=== PATIENT | female | born 1940 | race Caucasian/White ===

== ENCOUNTER 2024-07-11 14:14 | Outpatient (AMB) | payer MEDICARE, SELFPAY ==
[2024-07-11 14:24] VITALS: BP 120/62; PULSE 95; BMI 29.7
--- NOTE | 2024-07-11 14:24 | A.OFFVIS_ITS ---
Vital Signs 07/11/24 14:24 Height 5 ft 4 in Weight 173 lb 4.533 oz BMI 29.7 BP 120/62 Blood Pressure Location Rt brachial Position Sitting Pulse 95 Pulse Source Pulse Oximeter Intake Visit Reasons: [employer]/ Robin/ chest pain/ family hx/fatigue Director Of Strategic Initiatives Required: No Allergies No Known Allergies Allergy (Verified 07/11/24 14:26) Medication List - Last Reconciled 07/11/24 by Martinez Raygoza MD amlodipine 5 mg PO DAILY atorvastatin 40 mg PO DAILY cholecalciferol (vitamin D3) 50 mcg PO DAILY levothyroxine 50 mcg PO DAILY omega 8-iwo-pkd-fish oil 1,000 (120-180) mg (Fish Oil) 1 cap PO DAILY vitamin B complex 1 tab PO DAILY HPI Comments Details: Genevieve is here for consultation regarding chest discomfort/shortness of breath. No previous history of any cardiovascular issues including coronary disease or myocardial infarction or cardiomyopathy. She states that she gets short of breath with physical activities like climbing stairs or shopping. She gets generalized weakness and fatigue. Nonspecific chest tightness at different times which can happen even during turning extra. Nonexertional. She is concerned about cardiac issues as apparently it runs in her family. Her son who was in his 40s had heart attack but he was also a smoker then. Has previously seen [facility] undergone an echocardiogram. On medications for hypertension/dyslipidemia. [facility] Medical History (Updated 07/11/24 @ 15:31 by Martinez Raygoza MD) Hyperlipidemia, unspecified Primary hypertension Hernia Family History (Updated 07/11/24 @ 14:33 by Erinn Forrester CMA) Son Heart attack Social History (Updated 07/11/24 @ 14:34 by Erinn Forrester CMA) Alcohol intake: current Alcohol intake frequency: holidays/special occasions only Patient Tobacco Use Status: Never used Tobacco Review of Systems ENT Reports dizziness Card Denies chest pain, Denies chest pain at rest, Denies chest pain with activity, Denies rapid heart rate, Denies pedal edema, Denies edema, Denies leg edema, Denies lightheadedness, Denies palpitations, Denies dyspnea, Denies dyspnea on exertion and Denies orthopnea Resp Denies cough, Denies dyspnea and Denies dyspnea on exertion GI Denies hematochezia and Denies change in stool character Musc Denies abnormal gait, Reports limited range of motion, Reports muscle cramps, Denies muscle weakness, Denies numbness, Denies radiating pain into limb, Denies stiffness and Denies tingling Neuro Denies abnormal gait, Reports dizziness, Denies numbness and Denies tingling Endo Denies palpitations Physical Exam Vital Signs: Last Vital Signs Pulse 95 07/11/24 14:24 BP 120/62 07/11/24 14:24 BMI result Body Mass Index 29.7 Const General: comfortable and no acute distress Orientation/consciousness: patient oriented x3 HEENT Other: Unremarkable Head: Yes normal to inspection Neck Neck: Yes normal visual inspection Chest Chest palpation & inspection: normal inspection of the chest Resp Auscultation: clear to auscultation bilaterally Cardio Palpation: normal PMI Heart sounds: S1 normal heart sound present, S2 normal heart sound present, no gallops, no murmurs and no rubs GI Palpation (GI): Soft to palpation Back/Spine/Pelvis Other: unremarkable Skin General skin exam: no rashes or lesions noted Neuro General: patient oriented x3 Extrem General: Yes normal to inspection Psych Mental Status: mental status grossly normal Assessment & Plan Assessment & Plan (1) Precordial chest pain: Code(s): R07.2 - Precordial pain Category: Medical (2) SOB (shortness of breath): Code(s): R06.02 - Shortness of breath Category: Medical (3) Primary hypertension: Code(s): I10 - Essential (primary) hypertension Category: Medical (4) Hyperlipidemia, unspecified: Code(s): E78.5 - Hyperlipidemia, unspecified Category: Medical Plan Echocardiogram at [facility] [place]-LVEF 55-60%. Mild asymmetric hypertrophy from sigmoid septum. Normal diastolic function. No significant valvular abnormalities. Symptoms are somewhat atypical but based on family history, risk factors, reasonable to get a pharmacological stress test with Lexiscan. Highly unlikely to exercise on the treadmill. If any concerning findings, we will reassess. No changes with blood pressure medications or statins. Follow-up after the above. Discussion Notes I discussed with the patient the necessity of a pharmacological stress test due to her inability to perform an exercise stress test. I explained that this is an injection-based procedure that assesses the heart's function under stress and is critical for diagnosing any coronary artery disease given her symptoms and family history. I clarified that the echocardiogram cannot detect blockages, hence the need for further testing. We discussed managing her hyperlipidemia and hypertension as ongoing concerns, and the significance of addressing sleep apnea, emphasizing follow-up with previous providers for unresolved issues. The patient and family understood the risks and benefits and including the importance of timely follow-up visits. Patient was informed and verbally consented to the use of an ambient scribe for clinic note documentation during this visit. Orders: Orders NM cardiolite stress test Today R06.02 - Shortness of breath, R07.2 - Precordial pain CA lexiscan stress w leelee Today I20.9 - Angina pectoris, unspecified, R06.02 - Shortness of breath Patient Instructions: - Undergo the scheduled pharmacological stress test as instructed. - Continue taking your current medications for blood pressure and cholesterol. - Follow up with specialists about your sleep apnea management. - Avoid activities that worsen your shortness of breath or chest pain. - Inform your family of any changes in your symptoms. - Contact your healthcare provider if you experience increased chest pain, breathing difficulties, or other new symptoms. Coding Level of Care Code New Pt Level 4 (49269) Diagnoses Precordial chest pain R07.2 SOB (shortness of breath) R06.02 Primary hypertension I10 Hyperlipidemia, unspecified E78.5
== END 2024-07-11 14:58 | disposition home or self-care (01) ==
PROVIDERS: PCP Physician Assistant Medical; Visit Provider Internal Medicine
DX: R07.2 Precordial pain (principal); R06.02 Shortness of breath; I10 Essential (primary) hypertension; E78.5 Hyperlipidemia, unspecified
CPT/HCPCS: 99204

== ENCOUNTER → 2024-07-11 14:14 | Outpatient (BNVA) | payer MEDICARE, SELFPAY | PROVIDERS: PCP Physician Assistant Medical; Visit Provider Internal Medicine | DX: R07.2 Precordial pain (principal); R06.02 Shortness of breath; I10 Essential (primary) hypertension; E78.5 Hyperlipidemia, unspecified; I20.9 Angina pectoris, unspecified | CPT/HCPCS: 99202 ==

== ENCOUNTER → 2024-09-06 07:39 | Outpatient (REF) | payer MEDICARE, SELFPAY ==
--- NOTE | ~2024-09-06 | NM_ITS ---
Lexiscan Myocardial perfusion study Indication: Chest pain Technique: The patient was brought in for a Lexiscan perfusion study on 09/06/2024 and was injected 0.4 mg of Lexiscan intravenously. Within a minute of this injection 25 mCi of sestamibi was given intravenously. Images were obtained using the SPECT gamma camera interlaced with the gating device. Images were obtained in supine position. Resting perfusion study was performed on 09/07/2024. Patient was administered 25 mCi of sestamibi intravenously at rest. Images were then obtained in supine position. Total DLP 141 mGy-cm. Images were processed with the software and compared side to side in short axis, horizontal long axis and vertical long axis views. Findings: Raw aquisition reviewed. The stress perfusion study showed decreased tracer uptake in the mid to distal lateral wall. There is improvement with CT attenuation correction suggestive of soft tissue attenuation artifact. The gated study shows normal LV systolic function with calculated LVEF of 69%. LV cavity is normal in size. The gated study shows normal wall thickening and contraction of segments. Resting study shows diminished tracer uptake in the distal part of lateral wall. There is improvement with CT attenuation correction suggestive of soft tissue attenuation artifact. Gating at rest reveals normal wall motion with ejection fraction at 69%. The findings are consistent with no clear reversible defects. Fixed lateral defect probably artifactual. NM/PR cardiolite stress test Impression: 1. Myocardial perfusion imaging study shows no clear evidence of ischemia or infarction. 2. Gated LVEF is 69% during stress and rest. 3. Transient ischemic dilatation not present. EKG component of the test reported separately. Electronically signed by: Martinez Raygoza MD 09/07/2024 03:57 PM EDT
--- OUTSIDE RECORDS SUMMARY | 2024-09-06 07:43 | XMS_ITS | Patient Health Record ---
Author Organization [facility] Address [address] [place] [address] Care Team Providers Care Plsql Developer Name Role Phone Clemente, Brice Primary Care Provider Moses Torres Unavailable [phone] Reason For Referral No Information Medications Medication SIG (Take, Route, Frequency, Duration) Notes Start Date End Date Status Night Splint AFO - L1930 as directed 04/23/2015 Active Vitamin D3 Active Synthroid 50 MCG Oral; Duration: 90 Active Omeprazole 40 MG Oral; Duration: 90 Active Albuterol Sulfate HFA Not-Taking Prevnar 13 Intramuscular; Duration: 1 Not-Taking Vitamin D Not-Taking Atorvastatin Calcium Active methylPREDNISolone N ot-Taking Meloxicam Not-Taking Doxycycline Hyclate Not-Taking Social History Alcohol Screen Question Answer Notes Did you have a drink contain ing alcohol in the past year? Yes How often did you have a dri nk containing alcohol in the past year? Monthly or less (1 point) Points 1 Interpretation Negative Tobacco use other than smoking: Question Answer Notes Are you an other tobacco user? No Problems Problem Type SNOMED Code ICD Code Onset Dates Problem Status W/U Status Risk Notes Problem Acquired hallux rigidus (2979779) Hallux rigidus, left foot (M20.22) Active confirmed Problem Acquired hallux rigidus (9836698) Hallux rigidus, right foot (M20.21) Active confirmed Plan Of Treatment Pending Test Test Name Order Date X ray : Foot, left 2V 04/23/2015 X ray : Foot, right 2V 04/23/2015 X ray : Foot, left 3V 02/17/2019 X ray : Foot, left 3V 10/31/2019 X ray : Foot, right 3V 02/17/2019 06145, [id number]/INJECT, JOINT/BURSA 1 Insurance Providers Payer Name Payer Address Payer Phone Subscriber Number Group Number Insured Name Patient Relationship to Insured Coverage Start Date Coverage End Date [employer] Preferred [address] [place] [address] [id number] Genevieve Johnson i Self - patient is the insured Medical (General) History Medical History History ICD Code Arthritis Back,Hip,and Knee pain chronic bronchitis Cataracts Chicken pox Headaches Knee Pain Reflux Thyroid disorder Osteoporosis Reflux ( GERD) thyroid Surgical History Surgery Date(Month/Year) hysterectomy tubal ligation head unspecified colonoscopy 02/2013 colonoscopy
--- OUTSIDE RECORDS SUMMARY | 2024-09-06 07:43 | XMS_ITS | Clinical Summary ---
Author Organization [facility] Address [address] [place] [id number] Phone Care Team Providers Care Machine Puller Name Role Phone Nadege Cerda MD Primary Care Provider [phone] Medications atorvastatin (LIPITOR) 40 mg tablet TAKE 1 TABLET BY MOUTH EVERY DAY 90 tablet 1 06/27/2024 Active Surgical History Surgery Date Site/Laterality Comments OTHER SURGICAL HISTORY 01/29/2020 PROCEDURE: ---- OTHER ----; COMMENT: paraesophageal hernia repair HYSTERECTOMY 1974 PROCEDURE: HISTORICAL HYSTERECTOMY Medical History Medical History Date Comments Fatigue 10/28/2021 DX:Fatigue Thyroid disease DX:Thyroid disea se Headache DX:Headache Arthritis DX:Arthritis Hypothyroidism DX:Hypothyroidis m GERD (gastroesophageal reflux disease) DX:GERD (gastroesophageal reflux disease) Shoulder pain DX:Shoulder pain Family History Medical History Relation Name Comments Colon cancer Mother Relation Name Status Comments Father Mother Social History Tobacco Use Types Packs/Day Years Used Date Smoking Tobacco: Never Smokeless Tobacco: Never Alcohol Use Standard Drinks/Week Comments No 0 (1 standard drink = 0.6 oz pur e alcohol) Comments Unknown Sex and Gender Information Value Date Recorded Sex Assigned at Not on file Legal Sex Female 12:42 AM EST Gender Identity Not on file Sexual Orientation Not on file Obstetrics History Last Filed Vital Signs Vital Sign Reading Time Taken Comments Blood Pressure 112/70 10/06/2023 9:01 AM EDT Sitting L Arm Pulse 71 10/06/2023 9:01 AM EDT Temperature - - Respiratory Rate - - Oxygen Saturation - - Inhaled Oxygen Concentration - - Weight 80.5 kg (177 lb 6.4 oz) 10/06/2023 9:01 AM EDT Height 162.6 cm (5' 4 ) 10/06/2023 9:01 AM EDT Body Mass Index 30.45 10/06/2023 9:01 AM EDT Plan of Treatment Health Maintenance Due Date Last Done Comments DTaP,Tdap,and Td Vaccines (1 - Tdap) 1961 Pneumococcal Vaccine: 50+ Years (1 of 1 - PCV) 02/23/1992 Zoster Vaccines (1 of 2) 02/23/1992 RSV Immunization Adult Patients (1 - 1-dose 75+ series) 2017 Cholesterol Screening (Lipid Panel) 01/24/2022 Falls Risk Assessment 01/24/2022 Social Influencers of Health Screening 01/24/2022 COVID-19 Vaccine ( - 2023-2 5 season) 2023 Depression Screening 02/16/2024 Colorectal Cancer Screening: Colonoscopy 10/14/2024 10/15/2023 Influenza Vaccine (#1) 2024 Osteoporosis Screening (Bone Density Screening) 12/02/2031 12/01/2021, 02/26/2019 HIB Vaccines Aged Out No longer eligi ble based on patient's age to complete this topic HPV Vaccines Aged Out No longer eligi ble based on patient's age to complete this topic Hepatitis A Vaccines Aged Out No long er eligible based on patient's age to complete this topic Hepatitis B Vaccines Aged Out No long er eligible based on patient's age to complete this topic IPV Vaccines Aged Out No longer eligi ble based on patient's age to complete this topic MMR Vaccines Aged Out No longer eligi ble based on patient's age to complete this topic Meningococcal ACWY Vaccine Aged Out N o longer eligible based on patient's age to complete this topic Meningococcal B Vaccine Aged Out No l onger eligible based on patient's age to complete this topic RSV Immunization Patients Under 20 months Aged Out No longer eligible b ased on patient's age to complete this topic Varicella Vaccines Aged Out No longer eligible based on patient's age to complete this topic Procedures Procedure Name Priority Date/Time Associated Diagnosis Comments [facility] DEXA AXIAL SKELETON Routine 12/01/2021 10:59 AM EDT Encounter for screening for osteoporosis from Last 3 Months or Most Recently Relevant to Health Maintenance Results * [facility] DEXA AXIAL SKELETON (12/01/2021 10:59 AM EDT) Anatomical Region Laterality Modality Mammography 12/01/2021 9:46 AM EDT Narrative 12/01/2021 10:59 AM EDT [facility] Diagnostic Imaging Department [address] [place] [id number] Patient: ANIBALYUNGFREDRICK Wiggins./Age/Sex: 1940 - 81 - F Unit#: [id number] [facility] CLI [facility]emonic[facility] Ordering Physician: NAVID HERZOG MD [facility] Dexa Axial Skeleton - 12/01/21 - 1040 HISTORY: The patient is a 81-year-old postmenopausal female with clinical concern for metabolic bone disease. FINDINGS: Dual energy x-ray absorptiometry of the lumbar spine and femurs is performed. The mean bone mineral density at L1-L4 is 1.037 gm/cm2 which is 88% of that of young normals and 101% of that of age matched controls. This yields a T-score of -1.2 and a Z-score of 0.1 which is diagnostic of osteopenia. The mean bone mineral density of the femurs bilaterally is 0.736 gm/cm2 which is 73% of that of young normals and 91% of that of age matched controls. This yields a T-score of -2.2 and a Z-score of -0.5 which is diagnostic of osteopenia. IMPRESSION: 1. Osteopenia. There has been an increase of 3.6% in bone mineral density in the lumbar spine since the prior examination of 02/21/2019. There has been a decrease of 0.3% in bone mineral density in the right femur and a decrease of 4.3% in bone mineral density in the left femur. 2. FRAX analysis yields a 10-year probability of major osteoporotic fracture of 22.6% and a 10-year probability of hip fracture of 6.2%. Code 14878 Dictating Physician: LASHA LUGO MD Electronically Signed by: LASHA LUGO MD Dic Date/Time: 12/01/21 1057 Sign date/Time: 12/01/21 105 Procedure Note Lasha Lugo MD - 02/04/2022 [facility] Diagnostic Imaging Department [address] [place], [place] [id number] Patient: YUNG CABRALFREDRICK Leone D.O.B./Age/Sex: 1940 - 81 - F Unit#: [id number] [facility] Ordering Physician: NAVID HERZOG MD [facility] Dexa Axial Skeleton - 12/01/21 - 9410 HISTORY: The patient is a 81-year-old postmenopausal female withclinical concern for metabolic bone disease. FINDINGS: Dual energy x-ray absorptiometry of the lumbar spine and femursis performed. The mean bone mineral density at L1-L4 is 1.037 gm/cm2 which is88% of that of young normals and 101% of that of age matched controls. Thisyields a T-score of -1.2 and a Z-score of 0.1 which is diagnostic of osteopenia. The mean bone mineral density of the femurs bilaterally is 0.736 gm/bb7jnxhq is 73% of that of young normals and 91% of that of age matched controls.This yields a T-score of -2.2 and a Z-score of -0.5 which is diagnostic of osteopenia. IMPRESSION: 1. Osteopenia. There has been an increase of 3.6% in bone mineral densityin the lumbar spine since the prior examination of 02/21/2019. There has travis decrease of 0.3% in bone mineral density in the right femur and a decreaseof 4.3% in bone mineral density in the left femur. 2. FRAX analysis yields a 10-year probability of major osteoporoticfracture of 22.6% and a 10-year probability of hip fracture of 6.2%. Code 69722 Dictating Physician: LASHA LUGO MD Electronically Signed by: LASHA LUGO MD Dic Date/Time: 12/01/21 1057 Sign date/Time: 12/01/21 1059 Navid Herzog MD IMG BI PROCEDURES Final Result from Last 3 Months or Most Recently Relevant to Health Maintenance Care Teams Machine Puller Relationship Specialty Start Date End Date Nadege Cerda MD PCP - General 07/20/23
--- NOTE | 2024-09-06 07:44 | CA_ITS ---
Acquisition Time: 2024-09-06 07:58:32 Total Exercise Time: 00:02:00 Test Indications: Dyspnea CP Medications: AMLODIPINE ATORVASTATIN LEVOTHYROXINE Protocol: LEXISCAN Max HR: 96 BPM 69% of Pred: 138 BPM Max BP: 118/72 mmHG Max Work Load: 1.0 METS Pharmacological stress test with Lexiscan while pt marches in her chair, with reports of SOB and a warm sensation in chest, without any arrythmias, with normotensive response to injection. Nondiagnostic EKG for ischemia. In recovery. pt treated with IVP Aminophylline 75 mg to reverse Lexiscan after which pt feeling back to baseline. Nuclear images pending. Test reviewed with Dr. Nowak. Referred By: Martinez Raygoza Electronically Signed By: Obdulio Vides
== END ==
LOC: HO.CARD 07:39
PROVIDERS: Visit Provider Internal Medicine
DX: R07.2 Precordial pain (principal); R06.02 Shortness of breath; I20.9 Angina pectoris, unspecified
CPT/HCPCS: 78452; 93017; A9500; J0280; J2785

== ENCOUNTER → 2024-09-06 07:44 | Outpatient (BNV) | payer MEDICARE, SELFPAY | DX: R06.02 Shortness of breath (principal) | CPT/HCPCS: 78452; 93016; 93018 ==

== ENCOUNTER 2024-09-19 14:47 | Outpatient (AMB) | payer MEDICARE, SELFPAY ==
--- NOTE | 2024-09-19 14:49 | MHC.OFFVIS ---
Vital Signs 09/19/24 14:51 Height 5 ft 4 in Weight 175 lb 7.807 oz BMI 30.1 BP 130/64 Blood Pressure Location Lt brachial Position Sitting Pulse 76 Pulse Source Pulse Oximeter Intake Visit Reasons: f/up mibi HS Intake Note: f/up-mibi HS Business Objects Required: No Accompanied by: Self / Same As Patient Allergies No Known Allergies Allergy (Verified 07/11/24 14:26) Medication List - Last Reconciled 09/19/24 by Obdulio Vides NP amlodipine 5 mg PO DAILY atorvastatin 40 mg PO DAILY cholecalciferol (vitamin D3) 50 mcg PO DAILY levothyroxine 50 mcg PO DAILY omega 8-nth-tun-fish oil 1,000 (120-180) mg (Fish Oil) 1 cap PO DAILY vitamin B complex 1 tab PO DAILY HPI Comments Details: This is an 84-year-old female patient coming in for a follow-up visit status post completion of myocardial perfusion study. Patient with a history of hypertension, hyperlipidemia and family history of coronary artery disease. Previously, patient was reporting shortness of breath and chest discomfort with exertion and therefore underwent a stress test. Today, patient reports ongoing symptoms of shortness of breath with exertion such as climbing up the stairs and chest pain that can happen with exertion as well as at rest. Patient is denying any symptoms of palpitations, dizziness, orthopnea, PND, leg edema, presyncope or syncope. Patient is reporting compliance with all of her medications. [facility] Medical History Hyperlipidemia, unspecified Primary hypertension Hernia Family History Son Heart attack Social History Alcohol intake: current Alcohol intake frequency: holidays/special occasions only Patient Tobacco Use Status: Never used Tobacco Review of Systems Const Denies chills, Denies fatigue, Denies fever(s), Denies frequent falls, Denies weakness, Denies weight gain and Denies weight loss ENT Denies dizziness Card Denies chest pain, Denies leg edema, Denies lightheadedness, Denies palpitations, Denies dyspnea and Denies dyspnea on exertion Resp Denies cough, Denies dyspnea and Denies dyspnea on exertion GI Denies hematochezia Musc Denies abnormal gait, Denies muscle weakness, Denies numbness, Denies radiating pain into limb and Denies tingling Neuro Denies abnormal gait, Denies dizziness, Denies frequent falls, Denies numbness, Denies tingling and Denies weakness Endo Denies fatigue and Denies palpitations Physical Exam Vital Signs: Last Vital Signs Pulse 76 09/19/24 14:51 BP 130/64 09/19/24 14:51 BMI result Body Mass Index 30.1 Const General: cooperative, healthy appearing, comfortable and no acute distress Orientation/consciousness: patient oriented x3 HEENT Head: Yes normal to inspection Neck Neck: Yes normal visual inspection, Yes trachea midline and Yes supple Chest Chest palpation & inspection: normal inspection of the chest Resp Effort & Inspection: normal respiratory effort Auscultation: clear to auscultation bilaterally, no crackles, no rales, no rhonchi and no wheezes Cardio Jugular venous distension: no JVD Palpation: normal PMI Rate: regular rate Rhythm: regular rhythm Heart sounds: S1 normal heart sound present, S2 normal heart sound present, no click, no gallops, no murmurs and no rubs Peripheral pulses: Peripheral pulses 2+ throughout GI Inspection: Yes normal to inspection Palpation (GI): Soft to palpation Auscultation: normal bowel sounds Skin General skin exam: no rashes or lesions noted Neuro General: patient oriented x3 Extrem General: Yes normal to inspection, No no pedal edema and No calf tenderness Psych Appearance: grossly normal Mental Status: mental status grossly normal Speech and movement: Normal speech and movement present Assessment & Plan Assessment & Plan (1) Precordial chest pain: Code(s): R07.2 - Precordial pain Category: Medical (2) SOB (shortness of breath): Code(s): R06.02 - Shortness of breath Category: Medical (3) Primary hypertension: Code(s): I10 - Essential (primary) hypertension Category: Medical (4) Hyperlipidemia, unspecified: Code(s): E78.5 - Hyperlipidemia, unspecified Category: Medical Plan 02/01/2023-patient's echo at [facility] shows a normal LV systolic function with an ejection fraction between 55-65% with mildly increased LV wall thickness, mild asymmetric hypertrophy due to a sigmoid septum, and mild aortic regurgitation. 09/06/2024-patient underwent a myocardial perfusion study was vasodilating agent that showed no clear evidence of ischemia. Given ongoing symptoms and multiple risk factors including hypertension, hyperlipidemia, obesity, and immediate family history of heart attack, we will proceed with a coronary CTA to look at the extent of coronary artery disease. Patient states that she has changed her PCP and has had no recent lipid profile done. We will repeat an lipid profile with an LDL goal less than 70. Continue high-dose statin therapy. Blood pressure today is well-controlled. Continue current regimen with a blood pressure goal less than 130/80. Advised monitoring blood pressures at home and maintaining a log of it. Advised heart healthy diet, regular exercise, losing weight, med compliance, and aggressive management of vascular risk factors. Follow-up after completion of coronary CTA. In the interim, patient will call the office with any concerns or change in symptoms. Advised to seek ER care in case of exertional chest pain not resolved with rest. This note was generated using voice recognition software. While every effort has been made to ensure accuracy and proper room service food server, there may be occasional errors that could affect the content or meaning of the described symptoms. Orders: Orders Basic Metabolic Panel Today R06.02 - Shortness of breath, R07.2 - Precordial pain Lipid Panel Today R06.02 - Shortness of breath, R07.2 - Precordial pain CT Cardiac Coronary Angio Today R06.02 - Shortness of breath, R07.2 - Precordial pain Coding Level of Care Code Est Pt Level 4 (58623) Complex EM visit Add On G2211 Diagnoses Precordial chest pain R07.2 SOB (shortness of breath) R06.02 Primary hypertension I10 Hyperlipidemia, unspecified E78.5 Time Spent (min) 31 Comment Time spent in reviewing the chart, test results, assessment, counseling and documentation.
[2024-09-19 14:51] VITALS: BP 130/64; PULSE 76; BMI 30.1
--- OUTSIDE RECORDS SUMMARY | 2024-09-19 15:21 | XMS_ITS | Clinical Summary ---
Author Organization [facility] Address [address] [place] [address] Phone Care Team Providers Care Handle Finisher Name Role Phone RafiqSimeonbrian Tavia Primary Care Provider [phone] Medications atorvastatin (LIPITOR) 40 mg tablet TAKE 1 TABLET BY MOUTH EVERY DAY 90 tablet 1 06/27/2024 Active Encounters Date Type Department Care Team Description 09/07/2024 Telephone Gastroenterology [facility] [address] [facility] 175 [facility] [address] [place] [address] Dusty Soto MD from Last 3 Months Surgical History Surgery Date Site/Laterality Comments OTHER [...] 10/06/2023 9:01 AM EDT Plan of Treatment Upcoming Encounters Date Type Department Care Team (Late st Contact Info) Description 12/21/2024 9:30 AM EST Office Visit Gastroenterology - [place] [address] [place] [phone] Jake Che DO [address] [place] [address] Health Maintenance Due Date Last Done Comments [...] Procedure Name Priority Date/Time Associated Diagnosis Comments [facility] DEXA AXIAL SKELETON Routine 12/01/2021 10:59 AM EDT Encounter for screening for osteoporosis from Last 3 Months or Most Recently Relevant to Health Maintenance Results * [facility] DEXA AXIAL SKELETON (12/01/2021 10:59 AM EDT) Anatomical Region Laterality Modality Mammography 12/01/2021 9:46 AM EDT Narrative 12/01/2021 10:59 AM EDT [facility] Diagnostic Imaging Department [address] [place] [address] Patient: GENEVIEVE CABRAL Vasu Ramos/Age/Sex: 1940 - 81 - F Unit#: [id number] [facility] Ordering Physician: BRUNILDA HERZOG MD [facility] Dexa Axial Skeleton - 12/01/21 1860 HISTORY: The patient is a 81-year-old postmenopausal [...] probability of hip fracture of 6.2%. Code 64231 Dictating Physician: LASHA LUGO MD Electronically Signed by: LASHA LUGO MD Dic Date/Time: 12/01/21 105 Sign date/Time: 12/01/21 105 Procedure Note Lasha Lugo MD - 02/04/2022 [facility] Diagnostic Imaging Department [address] [place] [address] Patient: DARRENDANIELLEGENEVIEVE/Age/Sex: 1940 - 81 - F Unit#: [id number] [facility]Ordering Site: [facility] Ordering Physician: BRUNILDA HERZOG MD [facility] Dexa Axial Skeleton - 12/01/21 - 1040 [...] density of the femurs bilaterally is 0.736 gm/gn1jwujj is 73% of that of young normals [...] probability of hip fracture of 6.2%. Code 47277 Dictating Physician: LASHA LUGO MD Electronically Signed by: LASHA LUGO MD Dic Date/Time: 12/01/21 1057 Sign date/Time: 12/01/21 105 Brunilda Herzog MD IMG BI PROCEDURES Final Result from Last 3 Months or Most Recently Relevant to Health Maintenance Insurance [employer] [facility] Care Teams Handle Finisher Relationship Specialty Start Date End Date Tavia Beck [address] [facility] [address] [place] [address] PCP - General Family Medicine 09/07/24
--- OUTSIDE RECORDS SUMMARY | 2024-09-19 15:21 | XMS_ITS | Patient Health Record ---
Author Organization [facility] Address [address] [place] [address] Care Team Providers Care Electroslag Welding Machine Operator Name Role Phone Clemente, Brice Primary Care Provider Moses Torres Unavailable [phone] Reason For Referral No Information Medications Medication [...] Problem Status W/U Status Risk Notes Problem Hallux rigidus, left foot (M20.22) Active confirmed Problem Acquired hallux rigidus (9345342) Hallux rigidus, right foot (M20.21) Active confirmed Plan Of Treatment Pending Test Test Name Order Date X ray : Foot, left 2V 04/23/2015 X ray : Foot, right 2V 04/23/2015 X ray : Foot, left 3V 02/17/2019 X ray : Foot, left 3V 10/31/2019 X ray : Foot, right 3V 02/17/2019 54869, [id number]/INJECT, JOINT/BURSA 1 Insurance Providers Payer Name Payer Address Payer Phone Subscriber Number Group Number Insured Name Patient Relationship to Insured Coverage Start Date Coverage End Date [employer] Medicare Preferred [address] [place] [phone] [id number] Genevieve Johnson i Self - patient is the insured Medical (General) History Medical History History ICD Code Arthritis Back,Hip,and Knee pain chronic bronchitis Cataracts Chicken pox Headaches Knee Pain Reflux Thyroid disorder Osteoporosis Reflux ( GERD) thyroid Surgical History Surgery Date(Month/Year) hysterectomy tubal ligation head unspecified colonoscopy 02/2013 colonoscopy
== END 2024-09-19 15:22 | disposition home or self-care (01) ==
LOC: HO.HCS 14:47
PROVIDERS: PCP Physician Assistant Medical
DX: R07.2 Precordial pain (principal); R06.02 Shortness of breath; I10 Essential (primary) hypertension; E78.5 Hyperlipidemia, unspecified
CPT/HCPCS: 99214; G2211

== ENCOUNTER → 2024-09-19 14:47 | Outpatient (BNVA) | payer MEDICARE, SELFPAY | PROVIDERS: PCP Physician Assistant Medical | DX: R07.2 Precordial pain (principal); R06.02 Shortness of breath; I10 Essential (primary) hypertension; E78.5 Hyperlipidemia, unspecified | CPT/HCPCS: 99212 ==

== ENCOUNTER 2024-09-21 13:50 | Outpatient (AMB) | payer MEDICARE, SELFPAY ==
[2024-09-21 13:56] VITALS: BP 118/72; PULSE 77; O2SAT 91; BMI 30.8
--- NOTE | 2024-09-21 13:56 | MHC.OFFVIS ---
Vital Signs 09/21/24 13:56 Height 5 ft 4 in Weight 179 lb 6 oz BMI 30.8 BP 118/72 Blood Pressure Location Lt brachial Position Sitting Pulse 77 Pulse Source Pulse Oximeter Pulse Oximetry (%) 91 L Oxygen Delivery Method Room Air Intake Visit Reasons: INP - Apnea, Sleep Disturbance Intake Note: Patient presents BOARDER HAND Apnea, Sleep Disturbance. Patients states some nights she is up all night and some nights she falls asleep then up within few hr and cant fall back sleep. Patient states had HST years ago not sure through who. No CPAP Accompanied by: Self / Same As Patient Allergies No Known Allergies Allergy (Verified 09/21/24 13:58) HPI Comments Details: 84 year r. hand female is a l. sided sleeper referred to us by her concreter for a sleep evaluation. HST c/w AHI She stays up all night, tosses and turns. Doesn't know if she snores, wakes up all hours of the night as she can not fall asleep and can not stay asleep. Denies headaches. Denies grinding her teeth. She has tried using wedge pillows and that sometimes will helps her fall asleep. She has BPPV and would like a referral to PT with [facility], at [facility]. She completed a stress test and Echo for SOB as she is chronically fatigued, being followed by cardiology for PACs. Her oxygen levels tends to be low around 89-91%, and she has brain fog, is slow to ambulate. Memory is poor at baseline, she forgets and has to write everything down, such as all her appts and tasks. She lives in independent living and can complete all her ADLs. She denies restless legs syndrome and has low back pain radiating down the r. knee pain when she lays down on her r. side at night. [facility] Medical History (Updated 09/27/24 @ 22:10 by Cameron Garcia PA-C) Benign positional vertigo Vertigo Hyperlipidemia, unspecified Primary hypertension Hernia Family History Son Heart attack Social History Alcohol intake: current Alcohol intake frequency: holidays/special occasions only Patient Tobacco Use Status: Never used Tobacco Physical Exam Vital Signs: Last Vital Signs Pulse 77 09/21/24 13:56 BP 118/72 09/21/24 13:56 Pulse Ox 91 L 09/21/24 13:56 Oxygen Delivery Method Room Air 09/21/24 13:56 BMI result Body Mass Index 30.8 Const General: cooperative, comfortable and no acute distress Nutritional Appearance: overweight Orientation/consciousness: patient oriented x3 HEENT Face and sinus: Yes face symmetric Throat: Yes other (mallampti score is 3) Eyes Pupils: Equal, round and reactive pupils present Neck Neck: Yes full ROM Resp Effort & Inspection: normal respiratory effort and able to speak in complete sentences Neuro General: patient oriented x3 and moves all extremities Cranial nerves: Yes Equal, round and reactive pupils present, Yes Normal accommodation reflex present, Yes Nystagmus not present, Yes Normal facial strength present, Yes Midline tongue present, Yes Ability to bilaterally rotate head present and Yes Ability to bilaterally elevate shoulders present Cognition (Neuro): normal cognition Gait exam (Neuro): Normal gait present Motor exam (neuro): 5/5 motor strength present throughout and Normal motor muscle tone present throughout Psych Appearance: grossly normal Thought process: Normal thought process present Thought content: Normal thought content present Results Reviewed Results Reviewed: 08/2022 Pharmacological stress test with Lexiscan while pt marches in her chair, with reports of SOB and a warm sensation in chest, without any arrythmias, with normotensive response to injection. Nondiagnostic EKG for ischemia. In recovery. pt treated with IVP Aminophylline 75 mg to reverse Lexiscan after which pt feeling back to baseline. Nuclear images pending. Test reviewed with Dr. Nowak. NM/NM cardiolite stress test Impression: 1. Myocardial perfusion imaging study shows no clear evidence of ischemia or infarction. 2. Gated LVEF is 69% during stress and rest. 3. Transient ischemic dilatation not present. EKG component of the test reported separately. Assessment & Plan Assessment & Plan (1) Insomnia: Code(s): G47.00 - Insomnia, unspecified Category: Medical Qualifiers: Insomnia type: primary Qualified Code(s): F51.01 - Primary insomnia (2) Benign positional vertigo: Comment: PT referral Code(s): H81.10 - Benign paroxysmal vertigo, unspecified ear Category: Medical Qualifiers: Laterality: unspecified laterality Qualified Code(s): H81.10 - Benign paroxysmal vertigo, unspecified ear (3) Excessive daytime sleepiness: Code(s): G47.19 - Other hypersomnia Category: Medical Plan PSG to r/o lizeth PT for BPPV / Vertigo and dizziness Labs to r/o fatigue Orders: Orders RT PSG in-lab sleep study 09/21/24 G47.19 - Other hypersomnia, G47.10 - Hypersomnia, unspecified Ferritin 09/22/24 G47.19 - Other hypersomnia Vitamin B12 and Folate 09/22/24 G47.19 - Other hypersomnia, H81.10 - Benign paroxysmal vertigo, unspecified ear, F51.01 - Primary insomnia Methylmalonic Acid 09/22/24 R53.83 - Other fatigue, G47.9 - Sleep disorder, unspecified, G47.19 - Other hypersomnia, H81.10 - Benign paroxysmal vertigo, unspecified ear, F51.01 - Primary insomnia PT Evaluation and Treatment 09/21/24 H81.10 - Benign paroxysmal vertigo, unspecified ear Vitamin D 25-OH Total 09/22/24 G47.19 - Other hypersomnia, H81.10 - Benign paroxysmal vertigo, unspecified ear, F51.01 - Primary insomnia Homocysteine 09/22/24 R53.83 - Other fatigue, G47.9 - Sleep disorder, unspecified, G47.19 - Other hypersomnia, H81.10 - Benign paroxysmal vertigo, unspecified ear, F51.01 - Primary insomnia Patient Instructions: Sleep Hygiene provided: set a scheduled bedtime and wake time to help regulate the circadian rhythm and balance the release of pituitary hormones. Sleep in a dark room, temperatures below 68 degrees, and no devices n bed. Limit caffeinated products 6 hours prior to bed, and limit fluids 2-4 hours prior to bed. Gentle night yoga, diffusing essential oils, and playing soft music can be relaxing. Coding Level of Care Code New Pt Level 4 (91557) Diagnoses Primary insomnia F51.01 Insomnia type: primary Benign paroxysmal positional vertigo, unspecified laterality H81.10 Laterality: unspecified laterality Excessive daytime sleepiness G47.19 Sleep Questionnaire Difficulty falling asleep: Yes Difficulty staying asleep?: Yes Number of arousals: 3-4 incontinence Snoring: No (she doesn't know) Witnessed apneas: No Gasping arousals: No Nocturia: No GERD: Yes (tums controlled) Vivid dreams: No Acting out dreams: No Abnormal behavior in sleep: No Abnormal movements in sleep: No Morning headaches: No Excessive daytime sleepiness: No Daytime naps: No Restless legs: No Hallucinations: No Sleep paralysis: No Drop attacks: No Sleep Study: Yes CPAP: No
--- OUTSIDE RECORDS SUMMARY | 2024-09-21 13:57 | XMS_ITS | Clinical Summary ---
Author Organization [facility] Address [address] [place] [address] Phone Care Team Providers Care Aluminum Siding Mechanic Name Role Phone RafiqSimeonbrian Tavia Primary Care Provider [phone] Medications atorvastatin (LIPITOR) 40 mg tablet TAKE 1 TABLET BY MOUTH EVERY DAY 90 tablet 1 06/27/2024 Active Encounters Date Type Department Care Team Description 09/07/2024 Telephone Gastroenterology [facility] [address] [facility] 175 [facility] 200 [place] [address] Dusty Soto MD from Last [...] 9:30 AM EST Office Visit Gastroenterology - [place] [address] [facility] [address] [place] [id number] Jake Che DO [address] [place] [address] Health Maintenance Due Date Last Done Comments [...] Procedure Name Priority Date/Time Associated Diagnosis Comments [facility] DEXA AXIAL SKELETON Routine 12/01/2021 10:59 AM EDT Encounter for screening for osteoporosis from Last 3 Months or Most Recently Relevant to Health Maintenance Results * [facility] DEXA AXIAL SKELETON (12/01/2021 10:59 AM EDT) Anatomical Region Laterality Modality Mammography 12/01/2021 9:46 AM EDT Narrative 12/01/2021 10:59 AM EDT [facility] Diagnostic Imaging Department [address] [place] [address] Patient: GENEVIEVE CABRAL Vasu Rmaos/Age/Sex: 1940 - 81 - F Unit#: [id number] [facility] Ordering Physician: BRUNILDA HERZOG MD [facility] Dexa Axial Skeleton - 12/01/21 3010 HISTORY: The patient is a 81-year-old postmenopausal [...] probability of hip fracture of 6.2%. Code 05077 Dictating Physician: LASHA LUGO MD Electronically Signed by: LASHA LUGO MD Dic Date/Time: 12/01/21 105 Sign date/Time: 12/01/21 105 Procedure Note Lasha Lugo MD - 02/04/2022 [facility] Diagnostic Imaging Department [address] [place] [address] Patient: DARRENDANILELEGENEVIEVE/Age/Sex: 1940 - 81 - F Unit#: [id number] [facility]ing Site: [facility] Ordering Physician: BRUNILDA HERZOG MD [...] density of the femurs bilaterally is 0.736 gm/dz4sqybn is 73% of that of young normals [...] probability of hip fracture of 6.2%. Code 84848 Dictating Physician: LASHA LUGO MD Electronically Signed by: LASHA LUGO MD Dic Date/Time: 12/01/21 1057 Sign date/Time: 12/01/21 105 Brunilda Herzog MD IMG BI PROCEDURES Final Result from Last 3 Months or Most Recently Relevant to Health Maintenance Insurance [employer] [facility] Care Teams Aluminum Siding Mechanic Relationship Specialty Start Date End Date Tavia Beck [address] [facility] [address] [place] [address] PCP - General Family Medicine 09/07/24
--- OUTSIDE RECORDS SUMMARY | 2024-09-21 13:57 | XMS_ITS | Patient Health Record ---
Author Organization [facility] Address [address] [place] [address] Care Team Providers Care Lens Inserter Name Role Phone Clemente, Brice Primary Care Provider Moses Torres Unavailable [phone] Reason For Referral No Information Medications Medication [...] Status Risk Notes Problem Acquired hallux rigidus (8535805) Hallux rigidus, left foot (M20.22) Active confirmed Problem Acquired hallux rigidus (1179190) Hallux rigidus, right foot (M20.21) Active confirmed Plan Of Treatment Pending Test Test Name Order Date X ray : Foot, left 2V 04/23/2015 X ray : Foot, right 2V 04/23/2015 X ray : Foot, left 3V 02/17/2019 X ray : Foot, left 3V 10/31/2019 X ray : Foot, right 3V 02/17/2019 58195, [id number]/INJECT, JOINT/BURSA 1 Insurance Providers Payer Name Payer Address Payer Phone Subscriber Number Group Number Insured Name Patient Relationship to Insured Coverage Start Date Coverage End Date [employer] Medicare Preferred [address] [place] [address] [phone] [id number] Genevieve Johnson i Self - patient is the insured Medical (General) History Medical History History ICD Code Arthritis Back,Hip,and Knee pain chronic bronchitis Cataracts Chicken pox Headaches Knee Pain Reflux Thyroid disorder Osteoporosis Reflux ( GERD) thyroid Surgical History Surgery Date(Month/Year) hysterectomy tubal ligation head unspecified colonoscopy 02/2013 colonoscopy
== END 2024-09-21 14:48 | disposition home or self-care (01) ==
LOC: HO.HSMS 13:51
PROVIDERS: PCP Nurse Practitioner Family; Visit Provider Physician Assistant Medical
DX: F51.01 Primary insomnia (principal); H81.10 Benign paroxysmal vertigo, unspecified ear; G47.19 Other hypersomnia
CPT/HCPCS: 99204

== ENCOUNTER → 2024-09-21 13:50 | Outpatient (BNVA) | payer MEDICARE, SELFPAY | PROVIDERS: PCP Nurse Practitioner Family; Visit Provider Physician Assistant Medical | DX: F51.01 Primary insomnia (principal); H81.10 Benign paroxysmal vertigo, unspecified ear; G47.19 Other hypersomnia; G47.9 Sleep disorder, unspecified | CPT/HCPCS: 99202 ==

== ENCOUNTER 2024-10-09 09:01 | Emergency (ER) | payer MEDICARE, SELFPAY ==
--- NOTE | ~2024-10-09 | XR_ITS ---
EXAMINATION: XR CHEST CLINICAL INFORMATION: weakness COMPARISON: None available. TECHNIQUE: 2 views of the chest were obtained. FINDINGS: The cardiac, hilar, and mediastinal contours are normal. Mild aortic mural calcification. The lungs demonstrate mild linear atelectasis or scarring in both lung bases. Lungs otherwise clear.. There is no pneumothorax or pleural effusion. There is no suspicious focal osseous or soft tissue abnormality. Probable bone island in the proximal right humerus. XR/XR chest 2V IMPRESSION: No active pulmonary disease. Electronically signed by: Patrick Vasquez MD 10/09/2024 11:12 AM EDT
--- NOTE | ~2024-10-09 | XR_ITS ---
EXAMINATION: XR LUMBOSACRAL SPINE CLINICAL INFORMATION: back pain COMPARISON: None available. TECHNIQUE: Three views of the lumbosacral spine. FINDINGS: Embolization coils are evident in the central upper pelvis. They extend both right and left of midline. Moderate atherosclerotic calcifications are present in the abdominal aorta and common iliac arteries. T12-L1 demonstrates mild disc space narrowing with anterior osteophyte. L4-5 demonstrates grade 1 anterolisthesis and mild to moderate facet osteoarthritis. L5-S1 demonstrates mild to moderate facet osteophytes. XR/XR lumbar spine 2-3V IMPRESSION: Degenerative changes, as noted above. Electronically signed by: Oliver Weber MD 10/09/2024 11:13 AM EDT
[2024-10-09 09:08] VITALS: BP 133/78; PULSE 78; RESP 16; TEMP 36.9; O2SAT 98; BMI 29.5
[2024-10-09 09:20] VITALS: BP 123/61; PULSE 87; RESP 16; TEMP 36.6; O2SAT 97
--- NOTE | 2024-10-09 09:24 | PC.NURSE ---
Patient presents to ED c/o low back pain rated 10/10 non radiating. Pain gets worse when standing for long periods of time Denies injury, SOB, urinary symptoms, fever, chills, and recent surgeries Pain has persistent over several months but has been becoming increasing worse as of recently VSS and up to date, +CMS +ROM Provider in to see patient Plan of care on going
--- NOTE | 2024-10-09 09:55 | ECG_ITS ---
Test Reason : weakness Blood Pressure : */* mmHG Vent. Rate : 72 BPM Atrial Rate : 72 BPM P-R Int : 184 ms QRS Dur : 58 ms QT Int : 370 ms P-R-T Axes : 53 -20 2 degrees QTcB Int : 405 ms Normal sinus rhythm Cannot rule out Anterior infarct , age undetermined Abnormal ECG No previous ECGs available Referred By: Paola Haq Electronically Signed By: RAYMUNDO TREJO
--- NOTE | 2024-10-09 09:57 | ED.GENADULT ---
HPI - General Adult General Chief complaint: General Medical Stated complaint: back pain Time Seen by Provider: 10/09/24 09:15 Source: patient Mode of arrival: ambulatory Limitations: no limitations History of Present Illness ED Provider: Paola Haq APRN HPI narrative: 84 yo female with PMH of HTN, HLD, hypothyroidism here with multiple complaints which have been ongoing for months. She reports lower back pain with no injury or trauma x months. No radiation of pain. No associated weakness, numbness/tingling of the LE. No numbness in the groin. No bowel/bladder incontinence, no fevers, chills, weight loss or night sweats. Pain is described as aching. Also complaints of generalized weakness with activity. Of note, patient has been seen by cards recently with negative stress, pending CTA for exertional chest pain/SOB. Patient reports this weakness is not associated with the chest pain/SOB and occurs on different occasions. Of note, patient recently left her PCP as she was unhappy and does not currently have a PCP. She is trying to establish a new PCP. She does live alone, walked into the emergency room after driving herself here. Related Data Home Medications ?Medication ?Instructions ?Recorded ?Confirmed amlodipine 5 mg tablet 5 mg PO DAILY 07/11/24 09/19/24 atorvastatin 40 mg tablet 40 mg PO DAILY 07/11/24 09/19/24 cholecalciferol (vitamin D3) 50 50 mcg PO DAILY 07/11/24 09/19/24 mcg (2,000 unit) capsule levothyroxine 50 mcg capsule 50 mcg PO DAILY 07/11/24 09/19/24 omega 6-dyw-vya-fish oil 1,000 mg 1 cap PO DAILY 07/11/24 09/19/24 (120 mg-180 mg) capsule (Fish Oil) vitamin B complex 1 tab PO DAILY 07/11/24 09/19/24 Previous Rx's ?Medication ?Instructions ?Recorded lidocaine 5 % topical patch 1 patch topical DAILY #15 ea 10/09/24 (Lidoderm) Allergies Allergy/AdvReac Type Severity Reaction Status Date / Time No Known Allergies Allergy Verified 10/09/24 09:09 Review of Systems Review of Systems: Yes all other systems are reviewed and are negative Constitutional: Constitutional: Reports no additional constitutional complaints, Denies body ache(s), Denies chills, Denies fever(s), Denies headache(s) and Reports weakness Eyes: Eyes: Reports no additional eye complaints and Denies change in vision ENT: Reports system reviewed and no additional complaints, except as documented, Denies dizziness, Denies headache(s), Denies nasal congestion, Denies nasal discharge and Denies neck pain Cardiovascular: Cardiovascular: Reports no additional cardiovascular complaints, Denies chest pain, Denies leg edema and Denies dyspnea Respiratory: Respiratory: Reports no additional respiratory complaints, Denies cough and Denies dyspnea Gastrointestinal: Gastrointestinal: Reports no additional gastrointestinal complaints, Denies abdominal pain, Denies diarrhea, Denies nausea and Denies vomiting Genitourinary: Genitourinary: Reports no additional female genitourinary complaints and Denies urinary incontinence Musculoskeletal: Musculoskeletal: Reports no additional musculoskeletal complaints, Reports back pain, Denies arthralgias, Denies joint swelling, Denies neck pain, Denies numbness and Denies tingling Integumentary/Breasts: Skin/Breast: Reports system reviewed and no additional complaints, except as docu and Denies rash Neurologic: Reports system reviewed and no additional complaints, except as documented, Denies Abnormal speech present, Denies dizziness, Denies headache(s), Denies numbness, Denies tingling and Reports weakness PMFSH Past Medical History Attestation statement: The following information was validated with the patient. Source: old records reviewed and nursing notes reviewed Medical History Benign positional vertigo Vertigo Hyperlipidemia, unspecified Primary hypertension Hernia Family History Family History Son Heart attack Social History Social History Alcohol intake: current Alcohol intake frequency: holidays/special occasions only Patient Tobacco Use Status: Never used Tobacco Smoked in Last 30 Days: No Use of substances other than those prescribed or required for medical reasons: No Advance Directives: No Advance Directives Information Provided: Yes Physical Exam ED Vital Signs: Vital Signs - 24 hr 10/09/24 09:08 10/09/24 09:20 10/09/24 11:34 Temperature 98.4 F 97.9 F 97.9 F Pulse Rate 78 87 68 Respiratory Rate 16 16 14 Blood Pressure 133/78 123/61 143/71 H Pulse Oximetry 98 97 97 Oxygen Delivery Method Room Air Room Air Room Air BMI result Body Mass Index 29.5 Const General: cooperative, healthy appearing, comfortable and no acute distress Orientation/consciousness: patient oriented x3 Limitations: no limitations HENMT Head: Yes normal to inspection Ears: hearing grossly normal bilaterally and TM's normal bilaterally General nose exam: Normal external nose present Face and sinus: Yes normal facial exam Mouth: Normal oral and palatal mucosa present Throat: Yes posterior oropharynx normal, Yes tonsils normal and Yes uvula midline Eyes General: appearance normal, both eyes and all related structures Pupils: Equal, round and reactive pupils present Neck Neck: Yes normal visual inspection, Yes full ROM, Yes no lymphadenopathy and Yes no meningeal signs Chest Chest palpation & inspection: normal inspection of the chest Resp Effort & Inspection: normal respiratory effort Auscultation: clear to auscultation bilaterally Cardio Rate: regular rate Rhythm: regular rhythm Peripheral pulses: Peripheral pulses 2+ throughout GI Inspection: Yes normal to inspection Palpation (GI): Soft to palpation and nontender Auscultation: normal bowel sounds Back/Spine/Pelvis Other: Unable to illicit pain on palpation. No midline TTP. Pain is worsened with bilateral straight leg raise. Thoracic/Lumbar Spine: thoracic and lumbar spine normal to inspection Skin General skin exam: no rashes or lesions noted Neuro General: patient oriented x3, moves all extremities, no meningeal signs, no focal motor deficits and normal sensation to monofilament Cranial nerves: Yes CN's II-XII intact bilaterally, Yes Equal, round and reactive pupils present, Yes Bilaterally intact EOM present, Yes Nystagmus not present, Yes Normal facial strength present and Yes Midline tongue present Cognition (Neuro): normal cognition Speech: No Abnormal speech present Gait exam (Neuro): Normal gait present Motor exam (neuro): 5/5 motor strength present throughout Sensory Exam: Normal double simultaneous stimulation for sensation Coordination: hfbdvi-gi-sbmq test normal, dlyc-so-fcus test normal and tandem gait normal Extrem General: Yes normal to inspection, Yes no calf tenderness and No pedal edema Course Course Course Narrative: X-ray of the lumbar spine shows degenerative changes consistent with osteoarthritis. X-rays of the chest are normal. EKG is nonischemic. Troponin is flat. All lab work is normal. Urine shows no signs of infection. Reviewed findings with the patient. Recommend that she follow up outpatient with her primary care doctor for any continued symptoms. Reviewed worrisome signs and symptoms of when to return to the emergency room. Comfortable for discharge home. Medical Decision Making Medical Decision Making [facility] Narrative: 84 yo female with PMH of HTN, HLD, hypothyroidism here with multiple complaints which have been ongoing for months. She reports lower back pain with no injury or trauma x months. No radiation of pain. No associated weakness, numbness/tingling of the LE. No numbness in the groin. No bowel/bladder incontinence, no fevers, chills, weight loss or night sweats. Pain is described as aching. Also complaints of generalized weakness with activity. Of note, patient has been seen by cards recently with negative stress, pending CTA for exertional chest pain/SOB. Patient reports this weakness is not associated with the chest pain/SOB and occurs on different occasions. Of note, patient recently left her PCP as she was unhappy and does not currently have a PCP. She is trying to establish a new PCP. She does live alone, walked into the emergency room after driving herself here. NO overt neurological deficits Unable to illicit back pain on exam with palpation but is worsened with straight leg raise. No red flag symptoms. VSS Will check labs, EKG, CXR/lumbar x-ray, UA Differential Diagnosis Differential Diagnoses: The differential diagnosis associated with the presentation includes BACK PAIN Lumbar radiculopathy, lumbar strain, herniated disc Low suspicion for epidural abscess with no risk factors of same, no neurological deficits or red flag symptoms Low suspicion for ACS with no reports of chest pain, shortness of breath, diaphoresis or vomiting Low suspicion for pyelonephritis or renal colic with no CVA tenderness, urinary symptoms reported Low suspicion for malignancy with no red flag symptoms, more acute onset Low suspicion for cord compression, cauda equina with normal neurological exam and no red flag symptoms WEAKNESS ACS Metabolic cause Admission/Observation Consideration of admission/observation: Escalation of care including admission/observation considered Lab Data [facility] Lab Attestation statement: I reviewed the patient's lab results. 10/09/24 09:45 10/09/24 09:45 Labs: Lab Results 10/09/24 10/09/24 10/09/24 Range/Units 09:45 10:25 10:43 WBC 7.4 (4.8-10.8) X10*3/uL RBC 4.11 L (4.20-5.50) X10*6/uL Hgb 13.0 (12.0-16.0) g/dl Hct 39.6 (37.0-47.0) % MCV 96.4 (80.0-98.0) fL MCH 31.6 (27.0-33.0) pg MCHC 32.8 (31.0-35.0) g/dl RDW 14.2 (11.0-16.0) % Plt Count 307 (160-400) X10*3/uL MPV 9.9 (9.4-12.3) fL Immature Gran % (Auto) 0.3 (0.0-0.4) % Neut % (Auto) 63.7 (45-73) % Lymph % (Auto) 23.5 (20-40) % [place] % (Auto) 10.3 (2-11) % Eos % (Auto) 1.9 (0-4) % Baso % (Auto) 0.3 (0-2) % Lymph # (Auto) 1.7 (1.2-4.9) X10*3/uL [place] # (Auto) 0.8 (0.1-1.2) X10*3/uL Eos # (Auto) 0.1 (0.0-0.4) X10*3/uL Baso # (Auto) 0.0 (0.0-0.2) X10*3/uL Abs Immat Gran (auto) 0.02 (0.00-0.03) X10*3/uL Absolute Neuts (auto) 4.7 (2.0-8.3) x10*3/uL Absolute Nucleated RBC 0.000 (0.0-0.012) X10*3/uL Nucleated RBC % (auto) 0.0 (0.0-0.2) /100WBC Sodium 141 (135-145) mmol/L Potassium 4.0 (3.3-5.1) mmol/L Chloride 108 (96-108) mmol/L Carbon Dioxide 23 (22-29) mmol/L Anion Gap 14 (12-20) BUN 15 (9-16) mg/dL Creatinine 0.77 (0.5-1.4) mg/dL Estim Creat Clear Calc 56.9 Estimated GFR > 60 Random Glucose 105 (60-115) mg/dL Calcium 9.3 (8.4-10.2) mg/dL Magnesium 2.1 (1.6-2.6) mg/dL Total Bilirubin 0.4 (0.0-1.0) mg/dL Direct Bilirubin 0.2 (0.0-0.5) mg/dL AST 23 (5-31) U/L ALT 18 (0-31) U/L Alkaline Phosphatase 73 (39-117) U/L Troponin I High Sens < 2.7 (<3.5-17.0) ng/L Total Protein 6.8 (6.5-8.0) g/dL Albumin 3.9 (3.5-5.0) g/dL Urine Color Dark Yellow Urine Appearance Clear Urine pH 6.5 (5.0-9.0) Ur Specific [place] 1.015 (1.005-1.025) Urine Protein Negative (Neg-Trace) mg/dL Urine Glucose (UA) Negative (Negative) mg/dL Urine Ketones Trace (Negative) mg/dL Urine Blood Negative (Negative) Urine Nitrite Negative (Negative) Ur Leukocyte Esterase Small (1+) H (Negative) Urine RBC 0-2 (0-2) /HPF Urine WBC 0-5 (0-5) /HPF Ur Squamous Epith Cells 3-5 (0-2) /HPF Urine Bacteria Trace (None Seen) Hyaline Casts 0-2 (0-2) /LPF Independent Interpretation I performed an independent interpretation of an: EKG and Plain X-Ray Interpretation: I independently viewed the EKG which shows normal sinus rhythm with a rate of 72, normal WI, normal QRS, normal QT I independently viewed the chest x-ray and lumbar x-ray and agree with the radiology report Radiology Impression Discussion of test interpretation with radiology: I have reviewed the radiologist's reading. Radiologist Impression: [address] [address] XRay Report Signed Patient: Genevieve Cabral MR#: [id number] : 1940 Acct:[id number] Age/Sex: 84 / F ADM Date: 10/09/24 Loc: .ED Attending Dr: Ordering Physician: Paola Haq NP Date of Service: 10/09/24 Procedure(s): XR lumbar spine 2-3V Accession Number(s): [id number] cc: Paola Haq NP; Physician,Unknown ~ EXAMINATION: XR LUMBOSACRAL SPINE CLINICAL INFORMATION: back pain COMPARISON: None available. TECHNIQUE: Three views of the lumbosacral spine. FINDINGS: Embolization coils are evident in the central upper pelvis. They extend both right and left of midline. Moderate atherosclerotic calcifications are present in the abdominal aorta and common iliac arteries. T12-L1 demonstrates mild disc space narrowing with anterior osteophyte. L4-5 demonstrates grade 1 anterolisthesis and mild to moderate facet osteoarthritis. L5-S1 demonstrates mild to moderate facet osteophytes. XR/XR lumbar spine 2-3V IMPRESSION: Degenerative changes, as noted above. Electronically signed by: Oliver Weber MD 10/09/2024 11:13 AM EDT RP [place] [id number] XRay Report Signed Patient: Genevieve Cabral MR#: [id number] : 1940 Acct:[id number] Age/Sex: 84 / F ADM Date: 10/09/24 Loc: .ED Attending Dr: Ordering Physician: Paola Haq NP Date of Service: 10/09/24 Procedure(s): XR chest 2V Accession Number(s): [id number] cc: Paola Haq NP; Physician,Unknown ~ EXAMINATION: XR CHEST CLINICAL INFORMATION: weakness COMPARISON: None available. TECHNIQUE: 2 views of the chest were obtained. FINDINGS: The cardiac, hilar, and mediastinal contours are normal. Mild aortic mural calcification. The lungs demonstrate mild linear atelectasis or scarring in both lung bases. Lungs otherwise clear.. There is no pneumothorax or pleural effusion. There is no suspicious focal osseous or soft tissue abnormality. Probable bone island in the proximal right humerus. XR/XR chest 2V IMPRESSION: No active pulmonary disease. Electronically signed by: Patrick Vasquez MD 10/09/2024 11:12 AM EDT RP Tests considered The following testing was considered but not selected: No focal neurological finding to suggest need for CT head imaging Discharge Plan Discharge Clinical Impression: Osteoarthritis, Weakness Patient Disposition: Home, Self-Care Instructions: Osteoarthritis (ED), Weakness (ED) Additional Instructions: Your x-ray shows arthritis in your lower back Your lab work, EKG, urine testing and chest x-ray are normal Apply heat or ice to the area Gentle stretching Physical therapy may be helpful which will have to be ordered by a PCP Take the medications as prescribed Prescriptions: New lidocaine [Lidoderm] 5 % adhesive patch,medicated 1 patch topical DAILY Qty: 15 0RF Rx Instructions: leave on most painful area for up to 12 hrs No Action cholecalciferol (vitamin D3) 50 mcg (2,000 unit) capsule 50 mcg PO DAILY amlodipine 5 mg tablet 5 mg PO DAILY atorvastatin 40 mg tablet 40 mg PO DAILY levothyroxine 50 mcg capsule 50 mcg PO DAILY omega 6-egz-prs-fish oil [Fish Oil] 1,000 (120-180) mg capsule 1 cap PO DAILY vitamin B complex Tablet 1 tab PO DAILY Referrals: Physician,Unknown J [Primary Care Provider, Medical] Interventions: ED Discharge Assessment Last Done: 10/09/24 11:34 Print Language: Niuean
--- OUTSIDE RECORDS SUMMARY | 2024-10-09 09:57 | XMS_ITS | Clinical Summary ---
Author Organization [facility] Address [address] [place] [address] Phone Care Team Providers Care Sight Mounter Name Role Phone Ebony Tavia Primary Care Provider [phone] Medications atorvastatin (LIPITOR) 40 mg tablet TAKE 1 TABLET BY MOUTH EVERY DAY 90 tablet 1 06/27/2024 Active Encounters Date Type Department Care Team Description 09/07/2024 Telephone Gastroenterology [facility] 175 [facility] 175 [facility] [address] [place] [address] Dusty Soto MD from Last [...] Care Team (Late st Contact Info) Description 12/05/2024 11:00 AM EDT Appointment [facility] [address] [place] [address] 12/21/2024 9:30 AM EST Office Visit Gastroenterology - [place] 175 [facility] 175 [facility] [address] [place] [id number] Jake Che DO 175 [facility] [address] [place] [address] Health Maintenance Due Date Last Done Comments DTaP,Tdap,and Td Vaccines (1 - Tdap) 1961 Pneumococcal Vaccine: 50+ Years (1 of 1 - PCV) 02/23/1992 Zoster Vaccines (1 of 2) 02/23/1992 RSV Immunization Adult Patients (1 - 1-dose 75+ series) 2017 Cholesterol Screening (Lipid Panel) 01/24/2022 Falls Risk Assessment 01/24/2022 Social Influencers of Health Screening 01/24/2022 COVID-19 Vaccine (1 - 2023-2 5 season) 2023 Depression Screening [...] Procedure Name Priority Date/Time Associated Diagnosis Comments [facility] DEXA AXIAL SKELETON Routine 12/01/2021 10:59 AM EDT Encounter for screening for osteoporosis from Last 3 Months or Most Recently Relevant to Health Maintenance Results * [facility] DEXA AXIAL SKELETON (12/01/2021 10:59 AM EDT) Anatomical Region Laterality Modality Mammography 12/01/2021 9:46 AM EDT Narrative 12/01/2021 10:59 AM EDT [facility] Diagnostic Imaging Department [address] [place] [address] Patient: ZEUS CABRAL V /Age/Sex: 1940 - 81 - F Unit#: [id number] Location/Status: SPDIMAM/REG CLI Mnemonic[facility] Ordering Physician: NAVID HERZOG MD [facility] Dexa Axial Skeleton - 12/01/211039 HISTORY: The patient is a 81-year-old postmenopausal [...] probability of hip fracture of 6.2%. Code 24988 Dictating Physician: LASHA LUGO MD Electronically Signed by: LASHA LUGO MD Dic Date/Time: 12/01/21 105 Sign date/Time: 12/01/21 105 Procedure Note Lasha Lugo MD - 02/04/2022 [facility] Diagnostic Imaging Department [address] [place] [address] Patient: ZEUS CABRAL./Age/Sex: 1940 - 81 - F Unit#: [id number] Location/Status: SPDIMAM/REG CLI Mnemonic[facility] Ordering Physician: NAVID HERZOG MD [facility] Dexa Axial Skeleton - 12/01/211039 HISTORY: The patient is a 81-year-old postmenopausal [...] density of the femurs bilaterally is 0.736 gm/vw7pzqrz is 73% of that of young normals [...] probability of hip fracture of 6.2%. Code 74065 Dictating Physician: LASHA LUGO MD Electronically Signed by: LASHA LUGO MD Dic Date/Time: 12/01/211056 Sign date/Time: 12/01/211058 Navid Herzog MD IMG BI PROCEDURES Final Result from Last 3 Months or Most Recently Relevant to Health Maintenance Insurance [employer] [facility] Care Teams Sight Mounter Relationship Specialty Start Date End Date Tavia Beck [address] [facility] [address] [place] [address] PCP - General Family Medicine 09/07/24
--- OUTSIDE RECORDS SUMMARY | 2024-10-09 09:57 | XMS_ITS | Patient Health Record ---
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 Name Role Phone Clemente, Brice Primary Care Provider Moses Torres Unavailable [phone] Reason For Referral No Information Medications Medication [...] (M20.22) Active confirmed Problem Acquired hallux rigidus (0973699) Hallux rigidus, right foot (M20.21) Active confirmed Plan Of Treatment Pending Test Test Name Order Date X ray : Foot, left 2V 04/23/2015 X ray : Foot, right 2V 04/23/2015 X ray : Foot, left 3V 02/17/2019 X ray : Foot, left 3V 10/31/2019 X ray : Foot, right 3V 02/17/2019 [id number], [id number]/INJECT, JOINT/BURSA 1 Insurance Providers Payer Name Payer Address Payer Phone Subscriber Number Group Number Insured Name Patient Relationship to Insured Coverage Start Date Coverage End Date [employer] Preferred [address] [place] [address] [phone] [id number] Genevieve Johnson i Self - patient is the insured Medical (General) History Medical History History ICD Code Arthritis Back,Hip,and Knee pain chronic bronchitis Cataracts Chicken pox Headaches Knee Pain Reflux Thyroid disorder Osteoporosis Reflux ( GERD) thyroid Surgical History Surgery Date(Month/Year) hysterectomy tubal ligation head unspecified colonoscopy 02/2013 colonoscopy
[2024-10-09 10:17] LABS: MANUAL DIFF FLAG NO
[2024-10-09 10:22] LABS: Hematocrit 39.6 % (37.0-47.0); Hemoglobin 13.0 g/dl (12.0-16.0); Imm Gran Abs Auto 0.02 X10*3/uL (0.00-0.03); Imm Gran Pct Auto 0.3 % (0.0-0.4); Lymphocytes Absolute Auto 1.7 X10*3/uL (1.2-4.9); Mean Corpuscular HGB Conc 32.8 g/dl (31.0-35.0); Mean Corpuscular Hemoglobin 31.6 pg (27.0-33.0); Mean Corpuscular Volume 96.4 fL (80.0-98.0); NRBC Abs Auto 0.000 X10*3/uL (0.0-0.012); NRBC Pct Auto 0.0 /100WBC (0.0-0.2); Platelet Count 307 X10*3/uL (160-400); Red Blood Count 4.11 X10*6/uL (4.20-5.50); White Blood Count 7.4 X10*3/uL (4.8-10.8)
[2024-10-09 10:38] LABS: Anion Gap 14 (12-20); Blood Urea Nitrogen 15 mg/dL (9-16); Calcium 9.3 mg/dL (8.4-10.2); Carbon Dioxide 23 mmol/L (22-29); Chloride 108 mmol/L (96-108); Creatinine Clr Calc Pharmacy 56.9; Estimated Glomerular Filt Rate > 60; Potassium 4.0 mmol/L (3.3-5.1); Sodium 141 mmol/L (135-145)
[2024-10-09 10:51] LABS: Alanine Aminotransferase 18 U/L (0-31); Albumin Level 3.9 g/dL (3.5-5.0); Alkaline Phosphatase 73 U/L (39-117); Aspartate Amino Transferase 23 U/L (5-31); Magnesium 2.1 mg/dL (1.6-2.6); Total Protein 6.8 g/dL (6.5-8.0)
[2024-10-09 10:59] LABS: Troponin-I High Sensitivity < 2.7 ng/L (<3.5-17.0)
[2024-10-09 10:59] LABS: Appearance Urine Clear; Glucose Urine UA Negative (Negative); PH 6.5 (5.0-9.0); Specific Gravity - Urine 1.015 (1.005-1.025); UMIC TRIGGER UACC YES
[2024-10-09 11:09] LABS: UACC Culture Trigger YES
[2024-10-09 11:34] VITALS: BP 143/71; PULSE 68; RESP 14; TEMP 36.6; O2SAT 97
== END 2024-10-09 11:40 | disposition home or self-care (01) ==
PROVIDERS: Emergency Medicine; Nurse Practitioner Family; Emergency Provider Emergency Medicine
DX: M54.50 Low back pain, unspecified (principal); R94.31 Abnormal electrocardiogram [ECG] [EKG]; Z79.899 Other long term (current) drug therapy
CPT/HCPCS: 36415; 71046; 72100; 80048; 80076; 81001; 83735; 84484; 85025; 87086; 93005; 99283; 99285

== ENCOUNTER → 2024-10-09 09:55 | Outpatient (BNV) | payer MEDICARE, SELFPAY | PROVIDERS: Emergency Provider Emergency Medicine; Visit Provider Internal Medicine | DX: R94.31 Abnormal electrocardiogram [ECG] [EKG] (principal); R53.1 Weakness | CPT/HCPCS: 93010 ==

== ENCOUNTER → 2024-10-09 09:55 | Outpatient (BNV) | payer MEDICARE, SELFPAY | PROVIDERS: Emergency Provider Emergency Medicine; Visit Provider Radiology Diagnostic Radiology | DX: M51.360 Other intervertebral disc degeneration, lumbar region with discogenic back pain only (principal); R53.1 Weakness | CPT/HCPCS: 71046; 72100 ==

== ENCOUNTER 2024-11-14 09:13 | Outpatient (REF) | payer MEDICARE, SELFPAY ==
--- OUTSIDE RECORDS SUMMARY | 2024-11-14 09:58 | XMS_ITS | Clinical Summary ---
Author Organization [facility] Address [address] [place] [address] Phone Care Team Providers Care Ceramic Tile Installer Name Role Phone Tavia Beck Primary Care Provider [phone] Medications atorvastatin (LIPITOR) 40 mg tablet TAKE 1 TABLET BY MOUTH EVERY DAY 90 tablet 1 06/27/2024 Active Encounters Date Type Department Care Team Description 11/14/2024 Lab Requisition [facility] - Main Lab [address] [facility] [place] [phone] Navid Herzog MD Encounter for gynecological examination (general) (routine) without abnormal findings 09/07/2024 Telephone Gastroenterology - [place] [address] [place] [address] Dusty Soto MD from Last [...] AM EDT Appointment [facility] [address] [place] [phone] 12/21/2024 9:30 AM EST Office Visit Gastroenterology - [place] [address] [place] [address] [facility] [address] [place] [phone] Jake Che DO 175 [facility] [address] [place] [address] Health Maintenance Due Date Last Done Comments DTaP,Tdap,and Td Vaccines (1 - Tdap) 1961 Pneumococcal Vaccine: 50+ Years (1 of 1 - PCV) 02/23/1992 Zoster Vaccines (1 of 2) 02/23/1992 RSV Immunization Adult Patients (1 - 1-dose 75+ series) 2017 Cholesterol Screening (Lipid Panel) 01/24/2022 Falls Risk Assessment 01/24/2022 Social Influencers of Health Screening 01/24/2022 Depression Screening 02/16/2024 Colorectal Cancer Screening: Colonoscopy 10/14/2024 10/15/2023 COVID-19 Vaccine (1 - 2023-2 5 season) 2024 Influenza Vaccine (#1) 2024 Osteoporosis Screening (Bone [...] Procedure Name Priority Date/Time Associated Diagnosis Comments [facility] DEXA AXIAL SKELETON Routine 12/01/2021 10:59 AM EDT Encounter for screening for osteoporosis from Last 3 Months or Most Recently Relevant to Health Maintenance Results * [facility] DEXA AXIAL SKELETON (12/01/2021 10:59 AM EDT) Anatomical Region Laterality Modality Mammography 12/01/2021 9:46 AM EDT Narrative 12/01/2021 10:59 AM EDT [facility] Diagnostic Imaging Department [address] [place] [address] Patient: ZEUS CABRAL D.O.B./Age/Sex: 1940 - 81 - F Unit#: [id number] Location/Status: SPDIMAM/REG CLI Mnemonic/Ordering [facility] Ordering Physician: NAVID HERZOG MD Suhas Dexa [...] probability of hip fracture of 6.2%. Code 07365 Dictating Physician: LASHA LUGO MD Electronically Signed by: LASHA LUGO MD Dic Date/Time: 12/01/21 1057 Sign date/Time: 12/01/21 1059 Procedure Note Lasha Lugo MD - 02/04/2022 [facility] Diagnostic Imaging Department [address] [place] [id number] Patient: ZEUS CABRAL V /Age/Sex: 1940 - 81 - F Unit#: [id number] Location/Status: SPDIMAM/REG CLI Mnemonic/[facility] Ordering Physician: NAVID HERZOG MD Suhas Dexa Axial Skeleton - 12/01/210 HISTORY: The patient is a 81-year-old postmenopausal [...] density of the femurs bilaterally is 0.736 gm/bg0gpbkk is 73% of that of young normals [...] probability of hip fracture of 6.2%. Code 80577 Dictating Physician: LASHA LUGO MD Electronically Signed by: LASHA LUGO MD Dic Date/Time: 12/01/21 1057 Sign date/Time: 12/01/21 1059 Navid Herzog MD IMG BI PROCEDURES Final Result from Last 3 Months or Most Recently Relevant to Health Maintenance Insurance [employer] [facility] Care Teams Ceramic Tile Installer Relationship Specialty Start Date End Date Tavia Beck [address] [phone] PCP - General Family Medicine 09/07/24
--- OUTSIDE RECORDS SUMMARY | 2024-11-14 09:58 | XMS_ITS | Encounter Summary ---
Author Organization [facility] Address [address] [place] [address] Care Team Providers Care Plater Hot Dip Name Role Phone Tavia Beck Primary Care Provider [phone] Encounter Details Date Type Department Care Team (Latest Contact Info) Description 11/14/2024 Lab Requisition [facility] - Main Lab [address] [facility] [place] [phone] Navid Herzog MD 299 [facility] [address] [place] [phone] Encounter for gynecological examination (general) (routine) without abnormal findings Social History Tobacco Use Types Packs/Day Years Used Date Smoking Tobacco: Never Smokeless Tobacco: Never Alcohol Use Standard Drinks/Week Comments No 0 (1 standard drink = 0.6 oz pur e alcohol) Comments Unknown Sex and Gender Information Value Date Recorded Sex Assigned at Not on file Legal Sex Female 12:42 AM EST Gender Identity Not on file Sexual Orientation Not on file documented as of this encounter Plan of Treatment Upcoming Encounters Date Type Department Care Team (Late st Contact Info) Description 12/05/2024 11:00 AM EDT Appointment [facility] [address] [place] [phone] 12/21/2024 9:30 AM EST Office Visit Gastroenterology - [place] 175 [facility] 175 [facility] [address] [place] [phone] Jake Che DO 175 [facility] [address] [place] [address] Pending Results Name Type Priority Associated Diagnoses Date /Time Pap smear Pathology and Cytology Routine Encounter for gynecological examination (general) (routine) without abnormal findings 11/13/2024 12:00 AM EDT documented as of this encounter Visit Diagnoses Diagnosis Encounter for gynecological examination (general) (routine) without abnormal findings Encounter for screening mammogram for breast cancer documented in this encounter Care Teams Plater Hot Dip Relationship Specialty Start Date End Date Tavia Beck [address] [address] [place] [phone] PCP - General Family Medicine 09/07/24 documented as of this encounter
--- OUTSIDE RECORDS SUMMARY | 2024-11-14 09:58 | XMS_ITS | Patient Health Record ---
Author Organization [facility] Address [address] [place] [address] Care Team Providers Care Motorcycle Technician Name Role Phone Clemente, Brice Primary Care Provider Moses Torres Unavailable [phone] Reason For Referral No Information Medications Medication [...] Status Risk Notes Problem Acquired hallux rigidus (9973226) Hallux rigidus, left foot (M20.22) Active confirmed Problem Acquired hallux rigidus (2229103) Hallux rigidus, right foot (M20.21) Active confirmed Plan Of Treatment Pending Test Test Name Order Date X ray : Foot, left 2V 04/23/2015 X ray : Foot, right 2V 04/23/2015 X ray : Foot, left 3V 02/17/2019 X ray : Foot, left 3V 10/31/2019 X ray : Foot, right 3V 02/17/2019 [id number], [id number]/[id number], JOINT/BURSA 1 Insurance Providers Payer Name Payer Address Payer Phone Subscriber Number Group Number Insured Name Patient Relationship to Insured Coverage Start Date Coverage End Date [employer] Preferred [address] [place] [address] [id number] Genevieve Johnson i Self - patient is the insured Medical (General) History Medical History History ICD Code Arthritis Back,Hip,and Knee pain chronic bronchitis Cataracts Chicken pox Headaches Knee Pain Reflux Thyroid disorder Osteoporosis Reflux ( GERD) thyroid Surgical History Surgery Date(Month/Year) hysterectomy tubal ligation head unspecified colonoscopy 02/2013 colonoscopy
[2024-11-14 10:17] LABS: Anion Gap 11 (12-20); Blood Urea Nitrogen 13 mg/dL (9-16); Calcium 9.3 mg/dL (8.4-10.2); Carbon Dioxide 28 mmol/L (22-29); Chloride 107 mmol/L (96-108); Cholesterol 158 mg/dL (<200); Estimated Glomerular Filt Rate > 60; HDL Cholesterol 59 mg/dL (>40); Potassium 4.1 mmol/L (3.3-5.1); Sodium 142 mmol/L (135-145); Triglycerides 107 mg/dL (<150)
== END 2024-11-14 09:14 | disposition home or self-care (01) ==
LOC: HO.LAB 09:13
DX: R07.2 Precordial pain (principal); R06.02 Shortness of breath
CPT/HCPCS: 36415; 80048; 80061

== ENCOUNTER 2024-12-04 12:32 | Outpatient (AMB) | payer MEDICARE, SELFPAY ==
--- NOTE | 2024-12-04 12:37 | A.OFFVIS_ITS ---
Vital Signs 12/04/24 12:38 Height 5 ft 4 in Weight 177 lb 11.081 oz BMI 30.5 BP 124/68 Blood Pressure Location Lt brachial Position Sitting Pulse 84 Pulse Source Pulse Oximeter Intake Visit Reasons: 6 month f/up cta Accompanied by: Self / Same As Patient Allergies No Known Allergies Allergy (Verified 12/04/24 12:41) Medication List - Last Reconciled 12/04/24 by Martinez Raygoza MD amlodipine 5 mg PO DAILY atorvastatin 40 mg PO DAILY cholecalciferol (vitamin D3) 50 mcg PO DAILY levothyroxine 50 mcg PO DAILY omega 0-cja-htl-fish oil 1,000 (120-180) mg (Fish Oil) 1 cap PO DAILY vitamin B complex 1 tab PO DAILY HPI Comments Details: Genevieve returns for follow-up. Initially seen in consultation regarding chest discomfort or shortness of breath. She is describing nonspecific chest tightness at different times but not clearly during exertion. Also was getting short of breath with physical activities like climbing stairs or shopping. Had completed an echocardiogram at [facility]. Recently had a stress test as well as coronary CTA. Overall, the chest pain itself is very atypical and she describes it mostly when she is lying down extra. Not clear if it is rather from acid reflux. [facility] Medical History Benign positional vertigo Vertigo Hyperlipidemia, unspecified Primary hypertension Hernia Family History Son Heart attack Social History Alcohol intake: current Alcohol intake frequency: holidays/special occasions only Patient Tobacco Use Status: Never used Tobacco Review of Systems Const Denies daytime sleepiness, Denies difficulty sleeping, Denies snoring, Denies stops breathing during sleep and Denies weakness Card Denies chest pain, Denies rapid heart rate, Denies irregular heart rhythm, Denies claudication, Denies leg edema, Denies lightheadedness, Reports palpitations, Reports dyspnea, Reports dyspnea on exertion, Denies orthopnea, Denies paroxysmal nocturnal dyspnea and Denies slow heart rate Resp Denies cough, Reports dyspnea, Reports dyspnea on exertion and Denies snoring GI Reports no additional complaints, Denies hematochezia, Denies change in stool character and Denies dyspepsia Musc Denies abnormal gait, Denies muscle weakness and Denies numbness Neuro Denies abnormal gait, Denies numbness and Denies weakness Endo Reports palpitations Physical Exam Vital Signs: Last Vital Signs Pulse 84 12/04/24 12:38 BP 124/68 12/04/24 12:38 BMI result Body Mass Index 30.5 Const General: comfortable and no acute distress Orientation/consciousness: patient oriented x3 HEENT Other: Unremarkable Head: Yes normal to inspection Neck Neck: Yes normal visual inspection Chest Chest palpation & inspection: normal inspection of the chest Resp Auscultation: clear to auscultation bilaterally Cardio Palpation: normal PMI Heart sounds: S1 normal heart sound present, S2 normal heart sound present, no gallops, no murmurs and no rubs GI Palpation (GI): Soft to palpation Back/Spine/Pelvis Other: unremarkable Skin General skin exam: no rashes or lesions noted Neuro General: patient oriented x3 Extrem General: Yes normal to inspection Psych Mental Status: mental status grossly normal Assessment & Plan Assessment & Plan (1) Precordial chest pain: Code(s): R07.2 - Precordial pain Category: Medical (2) Atherosclerotic cardiovascular disease: Code(s): I25.10 - Atherosclerotic heart disease of de[place] coronary artery without angina pectoris Category: Medical Plan Cardiac studies reviewed. Echocardiogram at [facility] 55-60%. Mild asymmetric hypertrophy from sigmoid septum. Normal diastolic function. No significant valvular abnormalities. Myocardial perfusion imaging study shows no clear evidence of ischemia or infarction. Coronary CTA shows minimal stenosis in the coronaries and nothing of hemodynamic significance. Patulous distal esophagus with air-fluid levels suggesting esophageal dysmotility. Overall, patient only has mild coronary disease and unlikely to explain her ches t pain. Could be esophageal in nature based on the above findings. No further workup required from cardiac. Reassurance only. Follow up with PCP/GI. Coding Level of Care Code Est Pt Level 3 (76329) Diagnoses Precordial chest pain R07.2 Atherosclerotic cardiovascular disease I25.10
[2024-12-04 12:38] VITALS: BP 124/68; PULSE 84; BMI 30.5
== END 2024-12-04 12:57 | disposition home or self-care (01) ==
LOC: HO.HCS 12:33
PROVIDERS: Visit Provider Internal Medicine
DX: R07.2 Precordial pain (principal); I25.10 Atherosclerotic heart disease of native coronary artery without angina pectoris
CPT/HCPCS: 99213

== ENCOUNTER → 2024-12-04 12:32 | Outpatient (BNVA) | payer MEDICARE, SELFPAY | PROVIDERS: Visit Provider Internal Medicine | DX: R07.2 Precordial pain (principal); I10 Essential (primary) hypertension; I25.10 Atherosclerotic heart disease of native coronary artery without angina pectoris | CPT/HCPCS: 99212 ==